=== PATIENT | female | born 1975 | race Two or more races ===

== ENCOUNTER 2019-05-26 08:59 | Outpatient (CLI) | payer OTHER | END 2019-05-26 09:23 | disposition home or self-care (01) | LOC: SONOGRAMA 08:59 → MAMO-SONO 09:15 → SONOGRAMA 09:23 | DX: N92.0 Excessive and frequent menstruation with regular cycle (principal); N84.0 Polyp of corpus uteri ==

== ENCOUNTER 2021-12-30 11:45 | Inpatient (IN) | payer OTHER ==
[~2021-12-30] VITALS: Ht 157.5 cm; Wt 57.2 kg
[2022-01-01] MEDS ORDERED: DOCUSATE SODIU100 MG (14:24)
[2022-01-01] MEDS ORDERED: CELECOXIB200 MG (14:24)
[2022-01-01] MEDS ORDERED: DICLOFENAC SODI50 MG (14:25)
[2022-01-01] MEDS ORDERED: PANTOPRAZOLE SO40 MG (14:25)
[2022-01-01] MEDS ORDERED: GABAPENTIN100 M2 (14:25)
[2022-01-01] MEDS ORDERED: LEVOTHYROXINE75 MCG (14:25)
== END 2022-01-02 09:33 | disposition home or self-care (01) | DRG 743 ==
LOC: SURH 01-01 07:00 → OB/GYN 01-01 09:03 → O/R 01-01 09:03 → SURH 01-01 11:45 → OB/GYN 01-01 18:58
PROVIDERS: ADMIT Obstetrics & Gynecology Gynecology; ATTEND Obstetrics & Gynecology Gynecology
PROC: 0UT97ZZ Resection of Uterus, Via Natural or Artificial Opening (ICD-10-PCS; principal; 2022-01-01 07:00)
DX: N80.0 Endometriosis of uterus (principal); D25.1 Intramural leiomyoma of uterus; Z20.822 Contact with and (suspected) exposure to COVID-19; N71.1 Chronic inflammatory disease of uterus